=== PATIENT | female | born 1995 | race Caucasian/White ===

== ENCOUNTER → 2021-04-13 | Outpatient (CLI) | payer BC ==
--- NOTE | 2021-04-13 08:51 | Diagnostic Imaging Report ---
CLINICAL INDICATION: Patient with throat swelling and fatigue. EXAM: Ultrasound of the thyroid gland. COMPARISONS: None. FINDINGS: THYROID NODULES: There is a 1.3 cm x 0.7 cm x 0.5 cm anechoic nodule involving the inferior aspect of left thyroid lobe. There are no other thyroid nodule seen. THYROID GLAND: Besides the thyroid nodule, the thyroid gland has normal size, shape and echogenicity. The right lobe measures 4.8 cm x 1.6 cm x 1.2 cm and the left lobe measures 5.4 cm x 1.6 cm x 1.5 cm in their three dimensions. ISTHMUS: The isthmus is unremarkable and measures 3 mm in thickness. IMPRESSION: 1: There is an anechoic cyst involving the inferior aspect of the left thyroid lobe measuring 1.3 cm. TI-RADS 1 2: Otherwise, unremarkable thyroid ultrasound exam. Dictated by: Dictated on workstation # [id number]
== END ==
LOC: RAD 08:00
PROVIDERS: ATTEND Nurse Practitioner Family
DX: Z01.89 Encounter for other specified special examinations (principal); J02.8 Acute pharyngitis due to other specified organisms; E04.1 Nontoxic single thyroid nodule; L50.1 Idiopathic urticaria; J02.0 Streptococcal pharyngitis; Z20.822 Contact with and (suspected) exposure to COVID-19
CPT/HCPCS: 76536